=== PATIENT | female | born 1955 | race Caucasian/White ===

== ENCOUNTER 2017-01-30 08:06 | Day surgery (SDC) | payer BC ==
[~2017-01-30 08:06] MED LIST: Acetaminophen TAB* 325 MG PO PRN; Buffered Lidocaine 1% SYR 3ML* 3 ML/SYR SYRINGE INTRADERM ONE
[2017-01-30] MEDS ORDERED: Cyclopentolate 1% OPTH.SOL* 2 ML BTL ONE (08:11)
[2017-01-30] MEDS ORDERED: acetaZOLAMIDE TAB* 250 MG ONE (08:11)
[2017-01-30] MEDS ORDERED: Flurbiprofen 0.03% OPTH.SOL* 2.5 ML BTL ONE (08:11)
[2017-01-30] MEDS ORDERED: Lidocaine 1% MPF* 2 ML VIAL ONE (08:11)
[2017-01-30] MEDS ORDERED: Povidone Iodine 5% OPTH* 30 ML BTL ONE (08:11)
[2017-01-30] MEDS ORDERED: Proparacaine 0.5% OPHTH.SOL* 15 ML BTL ONE (08:11)
[2017-01-30] MEDS ORDERED: Phenylephrine 2.5% OPTH.SOL* 2 ML BTL ONE (08:11)
[2017-01-30] MEDS ORDERED: Neomycin/Polymy/Dex OPTH.SUSP* MAXITROL 0.1% 5 ML ONE (08:11)
[2017-01-30] MEDS ORDERED: Lidocaine 2% EPI 1:200000 MPF* 20 ML VIAL ONE (08:11)
[2017-01-30] MEDS ORDERED: Midazolam* 1 MG/ML 2 ML VIAL (2 MG) ONE ×2 (10:09→10:30)
[2017-01-30 11:08] VITALS: BP 139/79
--- NOTE | 2017-01-30 22:53 | OP ---
DATE OF OPERATION: 01/30/17 - [facility] DATE OF : 51 SURGEON: Sebastian Diaz MD PREOPERATIVE DIAGNOSIS: Cataract, right eye POSTOPERATIVE DIAGNOSIS: Cataract, right eye. OPERATIVE PROCEDURE: Phacoemulsification, right eye with IOL. DESCRIPTION OF PROCEDURE: The patient was brought to the operating room after being given 1/2% Alcaine with epinephrine drops in the preoperative area. The eye was prepped and draped in the usual sterile fashion. Sterile drape and eyelid speculum were placed. Again, topical 1/2% Alcaine with epinephrine was given. A paracentesis incision was made at the 9 o'clock position with the No.75 blade. Clear cornea incision 2.2 x 2.2-mm was created at the 12 o'clock position starting at the anterior limbus using the 2.2-mm keratome. The anterior chamber was irrigated with 0.4 mL of 1% non-preservative intracameral lidocaine and filled with DisCoVisc. A capsulorrhexis was completed using the cystotome and the Utrata forceps. Hydrodissection was performed with balanced salt solution. The lens nucleus was removed with the Phacoemulsification handpiece without incident. Cortex was removed with the irrigation-aspiration handpiece. The capsular bag was re-inflated using DisCoVisc and an [id number] implant was inserted with the shooter. The irrigation-aspiration handpiece was used to remove all residual DisCoVisc. The eye was refilled with balanced salt solution and the wound checked and found to be watertight. Topical Maxitrol drops were given. [id number]/[facility] #: [id number] [facility]
== END 2017-01-30 11:05 | disposition home or self-care (01) ==
LOC: OREAST 08:06
PROVIDERS: ATTEND Specialist
DX: H25.11 Age-related nuclear cataract, right eye (principal)
CPT/HCPCS: A9270-GY; J2250; V2632

== ENCOUNTER 2017-02-06 06:14 | Day surgery (SDC) | payer BC ==
[~2017-02-06 06:14] MED LIST changes: -Buffered Lidocaine 1% SYR 3ML* 3 ML/SYR SYRINGE INTRADERM ONE; +Buffered Lidocaine 1% SYRIN* 5 ML/SYR SYRINGE INTRADERM ONE
[2017-02-06] MEDS ORDERED: Midazolam* 1 MG/ML 2 ML VIAL (2 MG) ONE ×2 (07:32→07:39)
[2017-02-06] MEDS ORDERED: Cyclopentolate 1% OPTH.SOL* 2 ML BTL ONE (07:47)
[2017-02-06] MEDS ORDERED: Flurbiprofen 0.03% OPTH.SOL* 2.5 ML BTL ONE (07:47)
[2017-02-06] MEDS ORDERED: Lidocaine 1% MPF* 2 ML VIAL ONE (07:47)
[2017-02-06] MEDS ORDERED: Povidone Iodine 5% OPTH* 30 ML BTL ONE (07:47)
[2017-02-06] MEDS ORDERED: Phenylephrine 2.5% OPTH.SOL* 2 ML BTL ONE (07:47)
[2017-02-06] MEDS ORDERED: Proparacaine 0.5% OPHTH.SOL* 15 ML BTL ONE (07:47)
[2017-02-06] MEDS ORDERED: Lidocaine 2% EPI 1:200000 MPF* 20 ML VIAL ONE (07:47)
[2017-02-06] MEDS ORDERED: Neomycin/Polymy/Dex OPTH.SUSP* MAXITROL 0.1% 5 ML ONE (07:47)
[2017-02-06] MEDS ORDERED: acetaZOLAMIDE TAB* 250 MG ONE (07:47)
[2017-02-06 07:57] VITALS: BP 145/89
--- NOTE | 2017-02-06 15:25 | OP ---
OPERATIVE NOTE: DATE OF OPERATION: 02/06/17 - [facility] DATE OF : 51 SURGEON: Sebastian Diaz MD PREOPERATIVE DIAGNOSIS: Cataract, left eye. POSTOPERATIVE DIAGNOSIS: Cataract, left eye. OPERATIVE PROCEDURE: Phacoemulsification, left eye with IOL. PROCEDURE: The patient was brought to the operating room after being given 1/2 % Alcaine with epinephrine drops in the preoperative area. The eye was prepped and draped in the usual sterile fashion. Sterile drape and eyelid speculum were placed. Again, topical 1/2% Alcaine with epinephrine was given. A paracentesis incision was made at the 3 o'clock position with the No.75 blade. Clear cornea incision 2.2 x 2.2-mm was created at the 6 o'clock position starting at the anterior limbus using the 2.2-mm keratome. The anterior chamber was irrigated with 0.4 mL of 1% non-preservative intracameral lidocaine and filled with DisCoVisc. A capsulorrhexis was completed using the cystotome and the Utrata forceps. Hydrodissection was performed with balanced salt solution. The lens nucleus was removed with the Phacoemulsification handpiece without incident. Cortex was removed with the irrigation-aspiration handpiece. The capsular bag was re-inflated using DisCoVisc and an [id number] implant was inserted with the shooter. The irrigation-aspiration handpiece was used to remove all residual DisCoVisc. The eye was refilled with balanced salt solution and the wound checked and found to be watertight. Topical Maxitrol drops were given. [id number]/[facility] #: [id number] [facility]
== END 2017-02-06 08:02 | disposition home or self-care (01) ==
LOC: OREAST 06:14
PROVIDERS: ATTEND Specialist
DX: H25.12 Age-related nuclear cataract, left eye (principal); H33.8 Other retinal detachments
CPT/HCPCS: A9270-GY; J2250; V2632

== ENCOUNTER 2017-07-28 11:15 | Emergency (ER) | payer BC ==
[2017-07-28 11:29] VITALS: BP 141/76
--- NOTE | 2017-08-09 09:20 | UC ---
Prieto Seth Jason, scribed for Margarita Meier DO on 07/28/17 at 1154 . Skin Complaint HPI - HPI Summary HPI Summary: This patient is a 61 year old F presenting to [facility] with a chief complaint of abdominal tick bite since 1 day ago. The patient reports that she noticed a large tick bite on her abdomen yesterday morning. Additionally, she states that her dog sleeps on her bed. The patient rates the pain 1/10 in severity. Symptoms aggravated by nothing. Symptoms alleviated by nothing. Patient reports soreness at tick bite. Patient denies tick attachment for more than 24 hours. - History of Current Complaint Chief Complaint: UCSkin Time Seen by Provider: 07/28/17 11:37 Stated Complaint: TICK BITE Hx Obtained From: Patient Onset/Duration: Sudden Onset, Lasting Days - Since 1 day ago Pain Intensity: 1 Pain Scale Used: 0-10 Numeric Character: Pain - sore at tick bite Aggravating Factor(s): Nothing Alleviating Factor(s): Nothing Associated Signs & Symptoms: Positive: Abdominal Pain - soreness at tick bite - Allergy/Home Medications Allergies/Adverse Reactions: Allergies Allergy/AdvReac Type Severity Reaction Status Date / Time Cephalexin [From Keflex] Allergy whole body Verified 07/28/17 11:30 edema, severe Review of Systems Constitutional: Negative - fever Skin: Other - Tick bite and soreness in affected area All Other Systems Reviewed And Are Negative: Yes PMH/Surg Hx/FS Hx/Imm Hx - Additional Past Medical History Additional PMH: Osteoporosis Previously Healthy: Yes Endocrine History: Diabetes - negative Respiratory History: COPD - Negative - Surgical History Surgical History: Yes Surgery Procedure, Year, and Place: tonsilectomy, 1969, [facility] [place]. vericose veins, left 2000, [facility] [place]. Cataract surgury - Family History Known Family History: Positive: Hypertension - mother, Diabetes - grandfather - Social History Occupation: Employed Full-time Lives: With Family Alcohol Use: None Substance Use Type: None Smoking Status (MU): Former Smoker Amount Used/How Often: 1/2 pack for 5 years When Did the Patient Quit Smoking/Using Tobacco: 35 years ago Physical Exam Triage Information Reviewed: Yes Vital Signs: Initial Vital Signs Temp 98.5 F 07/28/17 11:26 Pulse 68 07/28/17 11:26 Resp 18 07/28/17 11:26 BP 141/76 07/28/17 11:26 Pulse Ox 99 07/28/17 11:26 Vital Signs Reviewed: Yes - Additional Comments Appearance: Well-Appearing, No Pain Distress, Well-Nourished Eyes: conjunctiva clear, no discharge ENT: Hearing grossly normal, no muffled/hoarse voice. Neck: Normal, Supple Respiratory/Lung Sounds: Lungs clear, Normal breath sounds, No respiratory distress, No accessory muscle use Cardiovascular: RRR, No murmur Abdomen (if she checks): Nontender, Soft, no guarding, not distended Bowel Sounds (if she checks): Present Musculoskeletal: Normal Neurological: Alert, muscle tone normal Psychiatric:Normal, age appropriate behavior Skin: Normal, Warm, Dry, Normal color. 1 cm erythematous lesion inferior to the inguinal line on the left thigh with a central area that has been gauged and has a scab due to tick bite removal. Course/Dx - Course Course Of Treatment: This patient is a 61 year old F presenting to [facility] with a chief complaint of abdominal tick bite since 1 day ago. The patient reports that she noticed a large tick bite on her abdomen yesterday morning. Additionally, she states that her dog sleeps on her bed. The patient rates the pain 1/10 in severity. Symptoms aggravated by nothing. Symptoms alleviated by nothing. Patient reports soreness at tick bite. Patient denies tick attachment for more than 24 hours. In the UC course the patients tick bite area was inspected for ticks. No tick was found and the pt was given a tick remover appliance for safer removal of ticks in the future. High blood pressure noted. Patient will be discharged and follow up with PCP. The patient is agreeable with this plan. Dx of tick bite. - Diagnoses Provider Diagnoses: Tick bite. Elevated blood pressure without diagnosis of hypertension. Discharge - Discharge Plan Condition: Stable Disposition: HOME Patient Education Materials: Tick Bite (ED) Referrals: Ishan Stanley MD [Primary Care Provider] - Additional Instructions: Your blood pressure was elevated at this visit. That does not mean you have hypertension, it is probably due to your current condition. Please follow up with your primary care provider. The documentation as recorded by the Prieto silva Jason accurately reflects the service I personally performed and the decisions made by , Margarita Meier DO.
== END 2017-07-28 12:16 | disposition home or self-care (01) ==
LOC: UCEAST 11:15
DX: S30.861A Insect bite (nonvenomous) of abdominal wall, initial encounter (principal); W57.XXXA Bitten or stung by nonvenomous insect and other nonvenomous arthropods, initial encounter; Y93.9 Activity, unspecified; Y92.9 Unspecified place or not applicable; R03.0 Elevated blood-pressure reading, without diagnosis of hypertension; Z88.1 Allergy status to other antibiotic agents; Z87.891 Personal history of nicotine dependence
CPT/HCPCS: 99211; G0463

== ENCOUNTER 2019-02-12 17:07 | Emergency (ER) | payer BC ==
[2019-02-12 17:18] VITALS: BP 144/87
--- NOTE | 2019-02-12 17:34 | UC ---
Skin Complaint HPI - HPI Summary HPI Summary: removed tick in its entirety from right foreleg about 60+ hours ago. Concerned about increase in erythema at the site. Believes that the tick attaches 2 days prior to recognition based on history. No hx of Lyme disease, has removed ticks in previous seasons. - History of Current Complaint Chief Complaint: UCSkin Time Seen by Provider: 02/12/19 17:24 Stated Complaint: TICK BITE Hx Obtained From: Patient Hx Last Menstrual Period: post Onset/Duration: Sudden Onset Skin Exposure Onset/Duration: Hours Ago Timing: Constant Onset Severity: Mild Current Severity: Mild Pain Intensity: 0 Location: Discrete Aggravating Factor(s): Nothing Alleviating Factor(s): Nothing Associated Signs & Symptoms: Positive: Negative Related History: Insect Bite/Sting - Allergy/Home Medications Allergies/Adverse Reactions: Allergies Allergy/AdvReac Type Severity Reaction Status Date / Time cephalexin [From Keflex] Allergy whole body Verified 02/12/19 17:20 hives, angioedema PMH/Surg Hx/FS Hx/Imm Hx Previously Healthy: Yes - osteopenia - Surgical History Surgical History: Yes Surgery Procedure, Year, and Place: tonsilectomy, 1969, [facility] [place]. vericose veins, left 2000, [facility] [place]. Cataract surgury - Family History Known Family History: Positive: Hypertension - mother, Diabetes - grandfather - Social History Lives: With Family Alcohol Use: None Substance Use Type: None Smoking Status (MU): Former Smoker Amount Used/How Often: 1/2 pack for 5 years When Did the Patient Quit Smoking/Using Tobacco: 35 years ago Review of Systems All Other Systems Reviewed And Are Negative: Yes Constitutional: Positive: Negative Skin: Positive: Rash Eyes: Positive: Negative ENT: Positive: Negative Respiratory: Positive: Negative Cardiovascular: Positive: Negative Gastrointestinal: Positive: Negative Motor: Positive: Negative Neurovascular: Positive: Negative Musculoskeletal: Positive: Negative Neurological: Positive: Negative. Negative: Headache Psychological: Positive: Negative Physical Exam Triage Information Reviewed: Yes Appearance: Well-Appearing, No Pain Distress Vital Signs: Initial Vital Signs Temp 98.4 F 02/12/19 17:12 Pulse 74 02/12/19 17:12 Resp 16 02/12/19 17:12 BP 144/87 02/12/19 17:12 Pulse Ox 99 02/12/19 17:12 ENT: Positive: Normal ENT inspection Neck: Positive: Supple, Nontender, No Lymphadenopathy Respiratory: Positive: Lungs clear, Normal breath sounds Cardiovascular: Positive: RRR, No Murmur Musculoskeletal: Positive: Strength Intact Psychological Exam: Normal Skin Exam: Other - 1 cm deeply erythematous annular area at site of bite, faint erythema surrounding approx 2 cm. Course/Dx - Course Course Of Treatment: doxycycline for Lyme prevention monitor for EM rash progression - Diagnoses Provider Diagnosis: Tick bite of right lower leg Discharge - Sign-Out/Discharge Documenting (check all that apply): Patient Departure All imaging exams completed and their final reports reviewed: No Studies - Discharge Plan Condition: Good Disposition: HOME Prescriptions: DOXYcycline CAP(*) [DOXYcycline 100MG CAP(*)] 2 tab PO ONCE #2 cap Patient Education Materials: Tick Bite (ED) Referrals: Phil Rodriguez [employer] [Primary Care Provider] - Additional Instructions: As discussed, you will take a single dose of doxycycline as preventin against Lyme disease. If the tick had the bacteria, this dose is about 80% effective in preventing the development of Lyme. Monitor for signs of rash, fever, joint pains over the next several weeks. - Billing Disposition and Condition Condition: GOOD Disposition: Home
== END 2019-02-12 17:45 | disposition home or self-care (01) ==
LOC: UCEAST 17:07
DX: S80.861A Insect bite (nonvenomous), right lower leg, initial encounter (principal); Z88.1 Allergy status to other antibiotic agents; Z87.891 Personal history of nicotine dependence; W57.XXXA Bitten or stung by nonvenomous insect and other nonvenomous arthropods, initial encounter; Y92.9 Unspecified place or not applicable
CPT/HCPCS: 99212; G0463